=== PATIENT | male | born 2000 | race Caucasian/White ===

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

== ENCOUNTER 2024-11-28 16:43 | Emergency (ER) | payer OTHER, SELFPAY ==
[2024-11-28] VITALS (15 sets, daily range): BP systolic 85–136; BP diastolic 66–89; PULSE 78–98; RESP 15–34; TEMP 36.5–37.4; O2SAT 97–100; BMI 26.4
--- NOTE | 2024-11-28 17:09 | EKG12_ITS ---
Test Reason : SEIZURE Blood Pressure : */* mmHG Vent. Rate : 91 BPM Atrial Rate : 91 BPM P-R Int : 136 ms QRS Dur : 108 ms QT Int : 344 ms P-R-T Axes : 44 84 21 degrees QTcB Int : 423 ms Normal sinus rhythm Normal ECG Confirmed by LA ORR, KARLY ([id number]), news videotape editor MARYSE NEW ([id number]) on 12/01/2024 7:39:44 AM Referred By: MILAD Confirmed By: KARLY TOVAR MD
--- NOTE | 2024-11-28 17:09 | CT_ITS ---
PROCEDURE: BRAIN/HEAD WITHOUT CONTRAST 11/28/2024 REASON FOR EXAM: MULTIPLE SEIZURES TECHNIQUE: Procedure Code: CTBR Modality: CT Procedure: BRAIN/HEAD WITHOUT CONTRAST Coronal and Sagittal reconstruction series were provided. One or more dose reduction techniques were used (e.g., Automated exposure control, adjustment of the mA and/or kV according to patient size, use of iterative reconstruction technique. COMPARISON: None available. FINDINGS: There is no extra-axial or intra-axial intracranial hemorrhage. No mass effect or midline shift is seen. The ventricles, sulci, and cisterns are normal in size and shape for the patient's age . There is normal landis-white matter differentiation. The posterior fossa is grossly unremarkable. The skull is unremarkable. Visualized paranasal sinuses are clear. The mastoid air cells show normal translucency. CT/Brain/Head without Contrast IMPRESSION: No intracranial hemorrhage. No mass effect or midline shift. Reading [facility]
[2024-11-28 17:19] LABS: Hematocrit 45.3 % (40-54); Hemoglobin 15.2 g/dL (13.0-16.5); Immature Granulocytes Count 1.480 X10^3/uL (0.0-0.0); Mean Corp Hgb Conc 33.6 g/dL (32-36); Mean Corpuscular Volume 87.8 fL (80-94); Mean Platelet Vol. 10.8 fl (6.2-12.0); NRBC Flagged by Analyzer 0 % (0-5); POSITIVE COUNT YES; POSITIVE DIFFERENTIAL YES; POSITIVE MORPHOLOGY YES; Platelet Count 357 K/mm3 (150-450); RBC Distribution Width CV 12.0 % (11.6-14.6); RBC Distribution Width SD 38.9 fl (35.1-43.9); Red Blood Count 5.16 M/mm3 (4.6-6.2)
[2024-11-28] MEDS: 0.9% Normal Saline (1000mL) 1,000 ML 999 ML IV ×3 (17:20→20:05)
[2024-11-28 17:22] LABS: White Blood Count 33.8 K/mm3 (4.4-11.0)
--- NOTE | 2024-11-28 17:30 | EX.ED.DYSGE1 ---
HPI History of Present Illness Chief Complaint: Seizure Narrative Narrative: Patient is a 24-year-old male with a history of seizures presenting to the ED with multiple seizure episodes today. Patient is accompanied by his mother, who is providing history on his behalf. - Patient reportedly had four seizure episodes today, starting around 1030 while hunting. - First seizure occurred at 1030, followed by a second seizure approximately 10 minutes later while being assisted back to the starting place by his grandfather. - After resting, patient experienced two episodes of emesis, which is unusual for him. - A third seizure occurred about 10 minutes later. - Patient was brought home around 1500, where he had another seizure just before coming to the ED. - Seizures today were described as brief, with the last one lasting about 30 seconds, during which he was stiff and attempting to vomit with clenched teeth. - Patient ate breakfast this morning but has not consumed anything since. - Last night, patient reportedly acted normally, took a nap after work, and went to bed early; however, one of the girls noticed possible petit mal seizures. - Patient has a history of seizures starting at age 8 with petit mal seizures, first convulsive seizure at age 16, and approximately 7 seizures since age 20. - Seizures typically begin with eye rolling and sometimes progress to convulsive seizures. - Patient is on Zolantin and Keppra for seizure management and has been adherent to his medication regimen. - Mother considered contacting the doctor due to concerns about medication efficacy. - Patient follows up with Dr. Sexton at [facility] but is seeking a different doctor. - Patient had a recent illness with a sore throat, fever, and a rash primarily on the legs, for which he was evaluated by a doctor; blood tests for mono and strep were reportedly normal. - Patient sustained a hand fracture 2 weeks ago and is wearing a cast. - Denies recent fevers, cough, dyspnea, nausea, emesis, or diarrhea. - Denies smoking. [facility] Medical History Seizures Home Medications ?Medication ?Instructions ?Recorded ?Last Taken ?Type clonazepam 1 mg tablet (Klonopin) 1 mg PO PRN PRN seizure activity 11/28/24 Unknown History ethosuximide 250 mg capsule 500 mg PO QHS 11/28/24 Unknown History (Zarontin) ethosuximide 250 mg capsule 750 mg PO DAILY 11/28/24 Unknown History (Zarontin) levetiracetam 1,000 mg tablet 2,000 mg PO BID 11/28/24 Unknown History (Keppra) ondansetron 4 mg disintegrating 4 mg PO Q6H PRN nausea and 11/29/24 Unknown Rx tablet vomiting #20 tabs Allergy/AdvReac Type Severity Reaction Status Date / Time No Known Allergies Allergy Verified 11/28/24 16:50 Social History Smoking Status: Never smoker ROS ROS ED ROS Narrative Constitutional: (-) fever Respiratory: (-) cough, (-) shortness of breath Gastrointestinal: (-) nausea, (-) vomiting, (-) diarrhea Neurological: (+) seizures EXAM Physical Exam Narrative Exam Narrative: General: Patient is lying in bed did not appear to be in acute distress Head: Atraumatic, normocephalic Eyes: PERRL bilaterally, EOMI bilaterally, no conjunctival injection noted patient was fighting the opening in his eyes Neck: Soft, supple, trachea midline Cardiovascular: Regular rate and rhythm Respiratory: Clear to auscultation bilaterally Abdomen: Soft nondistended Extremities: Patient moving all extremities on exam he tried to cover himself up with a blanket Neurological: Patient does appear to still be postictal, mother did note that it usually takes him several hours to fully have conversations again with them Skin: Warm, dry, intact no rashes or lesions noted Const Vital Signs: 11/28/24 16:44 11/28/24 17:28 11/28/24 17:30 Temperature 97.7 F L Temperature Source Axillary Pulse Rate 80 78 80 Respiratory Rate 19 H 20 H 34 H Blood Pressure 122/66 H 136/89 H Blood Pressure Mean 84 101 Pulse Ox 100 Oxygen Delivery Method Room Air 11/28/24 17:45 11/28/24 17:50 11/28/24 17:55 Temperature 99.3 F H Temperature Source Axillary Pulse Rate 83 Respiratory Rate 20 H Blood Pressure 133/83 H Blood Pressure Mean 98 Pulse Ox Oxygen Delivery Method 11/28/24 18:00 11/28/24 18:15 11/28/24 18:30 Temperature 99.3 F H Temperature Source Axillary Pulse Rate 90 84 85 Respiratory Rate 15 21 H 17 Blood Pressure 127/81 H 135/80 H 85/75 L Blood Pressure Mean 93 96 80 Pulse Ox Oxygen Delivery Method 11/28/24 18:31 11/28/24 18:50 11/28/24 19:50 Temperature 98.2 F 98.2 F Temperature Source Oral Axillary Pulse Rate 84 89 98 Respiratory Rate 16 19 H 20 H Blood Pressure 105/88 H 122/67 H 121/74 H Blood Pressure Mean 96 85 89 Pulse Ox 99 99 Oxygen Delivery Method Room Air Room Air 11/28/24 21:00 11/28/24 22:00 11/28/24 23:00 Temperature 98.1 F 98.8 F 98.3 F Temperature Source Axillary Axillary Axillary Pulse Rate 91 92 87 Respiratory Rate 19 H 17 20 H Blood Pressure 112/67 131/81 H 130/84 H Blood Pressure Mean 82 97 99 Pulse Ox 98 99 97 Oxygen Delivery Method Room Air Room Air Room Air MDM MDM MDM Narrative Medical decision making narrative: Patient is a 24-year-old male who presented to the emergency department the chief complaint of multiple seizures today for. On the differential diagnose includes but not limited to breakthrough seizure secondary to medication noncompliance however mother notes that he has been taking his medications as prescribed, strep throat, rheumatic fever, electrolyte abnormality, viral gastroenteritis, electrolyte normality, hypoglycemia. Patient given IV fluids he will be given a Keppra load of 3.5 g. Patient CBC was significant for leukocytosis of 33,000 this could be reactive secondary to all his seizures that he had today and questionably a viral illness as mother and father notified me that few of his coworkers that he worked with came down with flulike symptoms recently as well. Hemoglobin 15.2 platelet count was 357. Patient sodium was 140, potassium normal 3.5 patient's, dioxide was low at 14.2 anion gap 26 he was given IV fluids creatinine elevated 1.39 as well which will likely resolve with fluids. Patient glucose normal 147 lactic acid normal 1.8 AST and ALT were 33 and 16 respectively lipase was normal at 14. Patient's urinalysis reviewed and showed no evidence of infection drug screen negative his antistreptolysin titer is pending. This is a send out. Patient is EKG reviewed and showed sinus rhythm with a rate of 91 bpm NE interval normal at 156. There is significant delay in image results secondary to delay in reads of CT scans. Patient CT head brain without contrast showed no acute intracranial hemorrhage no mass effect. Patient CT ab pelvis IV contrast showed no acute findings. On reevaluation the patient mother notes that he is back to how he normally is after having seizures very sleepy however he is conversive with his parents. I discussed with them in regards to admission for his multiple seizures today his leukocytosis of uncertain etiology. After further discussion with them they would like to take him home instead and closely observe him as they feel that he is back to his baseline and acting his normal self when he has seizures. They are advised to follow-up with his neurologist on Saturday which they state they will do their advised to continue to give him his antiepileptic as prescribed and we will send Paramjit to the pharmacy for his nausea and vomiting likely in setting of viral gastroenteritis. They advised that if he has worsening symptoms or any other changes they should return immediately to the hospital and at that point time he will be admitted for further workup. They are agreeable this plan all question concerns answered he is discharged home in stable condition Lab Data Labs: Laboratory Results - last 24 hr 11/28/24 11/28/24 11/28/24 16:03 18:25 18:30 WBC 33.8 H* RBC 5.16 Hgb 15.2 Hct 45.3 MCV 87.8 MCH 29.5 MCHC 33.6 RDW Std Deviation 38.9 RDW Coeff of Leobardo 12.0 Plt Count 357 MPV 10.8 Immature Gran % (Auto) 4.400 H Neut % (Auto) 84.8 H Lymph % (Auto) 4.4 L Emmet % (Auto) 6.2 Eos % (Auto) 0.1 Baso % (Auto) 0.1 Absolute Neuts (auto) 28.7 H Absolute Lymphs (auto) 1.49 Nucleated RBC % 0 Differential Comment SCANNED Diff Path Review May foll Reactive Lymphocytes RARE Plt Morphology Comment LARGE Sodium 140 Potassium 3.5 Chloride 101 Carbon Dioxide 14.2 L Anion Gap 26 H BUN 14 Creatinine 1.39 H Estim Creat Clear Calc 82.65 Est GFR (MDRD) Non-Af 73 BUN/Creatinine Ratio 10.2 Glucose 147 H Lactic Acid 1.8 Calcium 9.7 Total Bilirubin 0.27 AST 33 ALT 16 Alkaline Phosphatase 127 Total Protein 8.4 Albumin 5.1 H Globulin 3.4 Albumin/Globulin Ratio 1.5 Lipase 14 Urine Color Urine Clarity Urine pH Ur Specific [place] Urine Protein Urine Glucose (UA) Urine Ketones Urine Occult Blood Urine Nitrite Urine Bilirubin Urine Urobilinogen Ur Leukocyte Esterase Urine RBC Urine WBC Ur Squamous Epith Cells Ur Renal Epithelial Cell Urine Bacteria Hyaline Casts Urine Mucus Urine Opiates Screen U Buprenorphine Qual Ur Oxycodone Screen Urine Methadone Screen Urine Fentanyl Screen Ur Barbiturates Screen Ur Phencyclidine Scrn Ur Amphetamines Screen U Benzodiazepines Scrn Urine Cocaine Screen U Cannabinoids Screen Anti-Streptolysin Titr Cancelled 11/28/24 21:40 WBC RBC Hgb Hct MCV MCH MCHC RDW Std Deviation RDW Coeff of Leobardo Plt Count MPV Immature Gran % (Auto) Neut % (Auto) Lymph % (Auto) Emmet % (Auto) Eos % (Auto) Baso % (Auto) Absolute Neuts (auto) Absolute Lymphs (auto) Nucleated RBC % Differential Comment Diff Path Review Reactive Lymphocytes Plt Morphology Comment Sodium Potassium Chloride Carbon Dioxide Anion Gap BUN Creatinine Estim Creat Clear Calc Est GFR (MDRD) Non-Af BUN/Creatinine Ratio Glucose Lactic Acid Calcium Total Bilirubin AST ALT Alkaline Phosphatase Total Protein Albumin Globulin Albumin/Globulin Ratio Lipase Urine Color Yellow Urine Clarity Clear Urine pH 6.0 Ur Specific [place] 1.020 Urine Protein 100 H Urine Glucose (UA) Normal Urine Ketones Negative Urine Occult Blood 25 H Urine Nitrite Negative Urine Bilirubin Negative Urine Urobilinogen Normal Ur Leukocyte Esterase Negative Urine RBC 0-5 SEEN Urine WBC 0-5 SEEN Ur Squamous Epith Cells 0-5 SEEN Ur Renal Epithelial Cell 0-5 SEEN Urine Bacteria RARE Hyaline Casts 0-5 SEEN Urine Mucus RARE Urine Opiates Screen NEGATIVE U Buprenorphine Qual NEGATIVE Ur Oxycodone Screen NEGATIVE Urine Methadone Screen NEGATIVE Urine Fentanyl Screen NEGATIVE Ur Barbiturates Screen NEGATIVE Ur Phencyclidine Scrn NEGATIVE Ur Amphetamines Screen NEGATIVE U Benzodiazepines Scrn NEGATIVE Urine Cocaine Screen NEGATIVE U Cannabinoids Screen NEGATIVE Anti-Streptolysin Titr Radiography Diagnostic Testing: Clinical Impression(s) from Imaging Studies Brain CT 11/28/24 17:09 IMPRESSION: No intracranial hemorrhage. No mass effect or midline shift. Reading Location: [facility] Abdomen/Pelvis CT 11/28/24 19:15 IMPRESSION: No acute abnormality. Reading [facility] Discharge Plan Triage Chief Complaint: Seizure ED Provider: Ld Shah Dx/Rx/DC Orders Clinical Impression: Breakthrough seizure, Viral gastroenteritis, Nausea & vomiting Prescriptions: New ondansetron 4 mg tablet,disintegrating 4 mg PO Q6H PRN (Reason: nausea and vomiting) Qty: 20 0RF No Action ethosuximide [Zarontin] 250 mg capsule 750 mg PO DAILY ethosuximide [Zarontin] 250 mg capsule 500 mg PO QHS levetiracetam [Keppra] 1,000 mg tablet 2,000 mg PO BID clonazepam [Klonopin] 1 mg tablet 1 mg PO PRN PRN (Reason: seizure activity) Primary Care Provider: Care Physician,No Primary Referrals: Care Physician,No Primary [Primary Care Provider, Medical] Activity Restrictions/Additional Instructions: Follow-up with his neurologist on Saturday as we discussed. Prescription for nausea medication was sent to the pharmacy. Continue to give his seizure medications as prescribed. Return with worsening symptoms or other concerns as we discussed here. The strep test that was a blood test was a send out therefore this will not return today you guys need to follow-up with this with your doctor and discussed the results Print Language: Hungarian Disposition Disposition: Home, Self Care
[2024-11-28 17:46] LABS: Lipase 14 U/L (13-75)
[2024-11-28 17:48] LABS: Reactive Lymphocyte RARE
[2024-11-28 17:50] LABS: Differential Comment SCANNED
[2024-11-28 17:51] LABS: Differential Indicated SCAN CRITERIA MET
[2024-11-28 18:10] LABS: AST(SGOT) 33 U/L (<=37); Alanine Aminotransfer ALT/SGPT 16 U/L (<=46); Albumin, Serum 5.1 g/dL (3.5-5.0); Alkaline Phosphatase 127 U/L (40-129); Anion Gap 26 (5-15); BUN 14 mg/dL (4-19); BUN/Creat Ratio 10.2 RATIO (10-20); Calcium,Total 9.7 mg/dL (7.6-11.0); Carbon Dioxide 14.2 mmol/L (21.0-32.0); Chloride 101 mmol/L (98-108); Estimated Creatinine Clearance 82.65 ml/min (50-250); Globulin 3.4 g/dL (2.2-4.2); Glucose 147 mg/dL (70-99); Potassium 3.5 mmol/L (3.3-5.1)
[2024-11-28] MEDS: NORMAL SALINE 0.9% IV (18:36)
[2024-11-28] MEDS: LEVETIRACETAM IV (18:36)
--- NOTE | 2024-11-28 19:15 | CT_ITS ---
PROCEDURE: ABDOMEN/PELVIS W IV CONT ONLY 11/28/2024 REASON FOR EXAM: NAUSEA VOMITING TECHNIQUE: Procedure Code: [id number] Modality: CT Procedure: ABDOMEN/PELVIS W IV CONT ONLY Coronal and Sagittal reconstruction series were provided. CONTRAST: Amount non indicated One or more dose reduction techniques were used (e.g., Automated exposure control, adjustment of the mA and/or kV according to patient size, use of iterative reconstruction technique. FINDINGS: The lung bases are clear. Normal lumbar alignment and vertebral body height. No splenic or liver abnormality. No pancreatic gross contour deformity. There is moderate motion artifact. There is no hydronephrosis involving the kidneys. There is no dilatation of the stomach, colon or small bowel. The bladder is significantly distended. There is no free air or free fluid. Negative for bowel perforation or abscess. CT/Abdomen/Pelvis W IV Cont ONLY IMPRESSION: No acute abnormality. Reading Location: [facility]
[2024-11-28 22:17] LABS: Color, Urine Yellow (Yellow); Glucose, Dipstick Normal (Normal); Ketone-Dipstick Negative (Negative); Leukocyte Esterase-Dipstick Negative /ul (Negative); Nitrite-Dipstick Negative (Negative); Occult Blood-Urine 25 /ul (Negative); Protein-Dipstick 100 mg/dl (Negative); Specific Gravity, Urine 1.020 (1.002-1.030); Urine Bilirubin Dipstick Negative (Negative)
[2024-11-28 22:26] LABS: Mucous, Urine RARE /hpf (<or=2+); Red Blood Cells-Urine 0-5 SEEN /hpf (0-5); Squamous Epithelial Cells - UA 0-5 SEEN /hpf (0-5)
[2024-11-28 22:31] LABS: Barbiturate Urine NEGATIVE (< 200 ng/mL); Benzodiazepine Urine NEGATIVE (< 200 ng/mL); PCP Urine NEGATIVE (< 25 ng/mL); THC Urine NEGATIVE (< 50 ng/mL)
[2024-11-29 00:28] VITALS: BP 125/78; PULSE 78; RESP 17; TEMP 36.9; O2SAT 96
--- NOTE | 2024-11-29 00:31 | ED.RN ---
pt dc'd home with parents. still very postictal/tired. unable to sit up straight independently. assisted in getting pt dressed and into wheelchair.
== END 2024-11-29 00:32 | disposition home or self-care (01) ==
PROVIDERS: Emergency Provider Emergency Medicine; Visit Provider Emergency Medicine
DX: R56.9 Unspecified convulsions (principal); Z79.899 Other long term (current) drug therapy; A08.4 Viral intestinal infection, unspecified; R11.2 Nausea with vomiting, unspecified
CPT/HCPCS: 36415; 70450; 74177; 80053; 80307; 81001; 83605; 83690; 85025; 86060; 87040; 87077; 87086; 87088; 93005; 96361; 96365; 96375; 99285; P9612; A4216; J2405